=== PATIENT | male | born 1980 | race Caucasian/White ===

== ENCOUNTER 2023-10-01 14:27 | Outpatient (RCR) | payer BC, MEDICAID, SELFPAY | END 2023-10-25 23:59 | disposition home or self-care (01) | LOC: SPT 14:27 | PROVIDERS: PCP Family Medicine; Visit Provider Family Medicine | DX: G82.53 Quadriplegia, C5-C7 complete (principal) | CPT/HCPCS: 97161 ==

== ENCOUNTER 2023-11-02 00:56 | Emergency (ER) | payer BC, MEDICAID, SELFPAY ==
[2023-11-02 01:19] VITALS: BP 90/72; PULSE 104; RESP 19; TEMP 36.5; O2SAT 94; BMI 33.0
--- NOTE | 2023-11-02 01:36 | ED_ITS ---
HPI - Male Genitourinary General: Chief complaint: Urogenital-Male Stated complaint: POSSIBLE UTI Time Seen by Provider: 11/02/23 01:16 Source: patient Mode of arrival: ambulatory Limitations: no limitations History of Present Illness: 43-year-old male has a history of spinal injury from a fall out of a tree stand last year he is a quadriplegic he has a suprapubic cath he states that he gets UTIs often he states that today he had some slight weakness and they did do a urine strip at home that showed positive UTI states he said no vomiting denies any fevers denies any pain anywhere Associated symptoms: Deny nausea or vomiting Review of Systems Const: Denies: fever(s), chills, body aches or change in appetite ENMT: Denies: throat pain or dental pain Card: Denies: chest pain Resp: Denies: dyspnea GI: Denies: abdominal pain, nausea, vomiting or diarrhea Musc: Denies: neck pain or back pain Skin/Breast: Denies: rash Physical Exam Const: COMMON NORMALS: no acute distress, patient oriented x3 and healthy appearing HENMT: COMMON NORMALS: normocephalic and atraumatic HEAD & SCALP: normocephalic and atraumatic Eye: COMMON NORMALS: conjunctivae normal CONJUNCTIVA: Yes conjunctivae normal Neck/C-Spine: COMMON NORMALS: full ROM and supple Chest: COMMONS NORMALS: normal inspection of the chest Resp: COMMON NORMALS: normal respiratory effort Cardio: COMMON NORMALS: regular rate RATE: regular rate : OTHER: Suprapubic in place urine noted in [place] bag Extremity: COMMON NORMALS: normal to inspection and full ROM Neuro: COMMON NORMALS: patient oriented x3, moves all extremities and no focal motor deficits Psych: COMMON NORMALS: mental status grossly normal, Normal thought process present and cooperative THOUGHT PROCESS: Normal thought process present Skin: COMMON NORMALS: no rashes or lesions noted and no wounds GENERAL SKIN EXAM: no rashes or lesions noted Course Vital Signs: Vital signs: Vital Signs Temperature 97.7 F 11/02/23 01:19 Pulse Rate 104 H 11/02/23 01:19 Respiratory Rate 19 H 11/02/23 01:19 Blood Pressure 90/72 11/02/23 01:19 Pulse Oximetry 94 11/02/23 01:19 Oxygen Delivery Me thod Room Air 11/02/23 01:19 MDM - Male Medical Decision Making Patient presents here with concern of UTI urinalysis does show UTI he has no signs of sepsis here we will give him IM dose of Rocephin place him on Keflex he is follow-up with PCP return if worsening Medical Records I reviewed the patient's medical records. Lab Data I reviewed the patient's lab results. Laboratory Results Urine Color Yellow (Yellow) 11/02/23 01:35 Urine Appearance Cloudy (CLEAR) A 11/02/23 01:35 Urine pH 5 (5-7) 11/02/23 01:35 Ur Specific [place] 1.015 (1.005-1.030) 11/02/23 01:35 Urine Protein Neg (Negative) 11/02/23 01:35 Urine Glucose (UA) Norm (Normal) 11/02/23 01:35 Urine Ketones 1+ (Negative) H 11/02/23 01:35 Urine Blood Trace (Negative) H 11/02/23 01:35 Urine Nitrate Positive (Negative) H 11/02/23 01:35 Urine Bilirubin Neg (Negative) 11/02/23 01:35 Urine Urobilinogen Neg mg/dL (Negative) 11/02/23 01:35 Ur Leukocyte Esterase 2+ (Negative) H 11/02/23 01:35 Urine RBC 0-4 /hpf (0-2) H 11/02/23 01:35 Urine WBC 25-40 /hpf (0-5) H 11/02/23 01:35 Ur Squamous Epith Cells 0-4 /hpf (0-5) H 11/02/23 01:35 Amorphous Sediment Not Reportable 11/02/23 01:35 Urine Bacteria 3+ /hpf (NONE) H 11/02/23 01:35 Urine Mucus Trace /hpf 11/02/23 01:35 No radiology studies performed this visit Discharge Plan Discharge Patient Disposition: Home Clinical Impression: Urinary tract infection Condition: Stable Prescriptions: New cephalexin 500 mg capsule 500 mg PO TID 7 Days Qty: 21 0RF Discharge Orders: Discharge ED (Routine); Ordered 11/02/23 Ordered By: Maia Sherman Referrals: Charles Garcia MD [Primary Care Provider] - 1-3 days Discharge Diet: Advance as tolerated Discharge Activity: Resume usual activity Patient Instructions: Urinary Tract Infection in Men (ED) Coding Level of Care Code ED Mobile Application Developer for Mely Torrez
[2023-11-02 01:45] VITALS: BP 102/68; PULSE 98; RESP 18; O2SAT 94
[2023-11-02 02:00] VITALS: BP 120/70; PULSE 91; RESP 20; O2SAT 95
[2023-11-02 02:08] LABS: Add Urine Microscopic? YES; Bilirubin Urine Neg (Negative); Blood Urine Trace (Negative); Glucose Urine UA Norm (Normal); Ketones Urine 1+ (Negative); Leukocyte Esterase Urine 2+ (Negative); Nitrate Urine Positive (Negative); Protein Urine Neg (Negative); Specific Gravity, Urine 1.015 (1.005-1.030); Urine Appearance Cloudy (CLEAR); Urine Color Yellow (Yellow); Urobilinogen Urine Neg (Negative); pH Urine 5 (5-7)
[2023-11-02 02:09] LABS: Add Urine Culture? Yes; Bacteria Urine 3+ /hpf; Mucus Urine TRACE /hpf; RBC Urine 0-4 /hpf (0-2); Squamous Epithelial Cell Urine 0-4 /hpf (0-5); WBC Urine 25-40 /hpf (0-5)
[2023-11-02] MEDS: cefTRIAXone 1,000 MG in water for injection-sterile 2.1 ML 999 MG IM (02:25)
[2023-11-02 02:30] VITALS: BP 152/69; PULSE 86; RESP 17; O2SAT 95
[2023-11-02 02:47] VITALS: BP 138/82; PULSE 85; RESP 19; O2SAT 94
== END 2023-11-02 02:47 | disposition home or self-care (01) ==
PROVIDERS: Emergency Provider Emergency Medicine; PCP Family Medicine
DX: N39.0 Urinary tract infection, site not specified (principal); G82.50 Quadriplegia, unspecified; Z87.440 Personal history of urinary (tract) infections
CPT/HCPCS: 81001; 87077; 87086; 87186; 99284; J0696

== ENCOUNTER 2023-12-05 15:38 | Outpatient (RCR) | payer BC, MEDICAID, SELFPAY | END 2023-12-25 23:59 | disposition home or self-care (01) | LOC: SOT 15:38 | PROVIDERS: PCP Family Medicine; Visit Provider Family Medicine | DX: R20.2 Paresthesia of skin (principal); G82.50 Quadriplegia, unspecified | CPT/HCPCS: 97167 ==

== ENCOUNTER 2023-12-12 06:00 | Outpatient (CLI) | payer BC, MEDICAID, SELFPAY | END 2023-12-12 23:59 | disposition home or self-care (01) | LOC: SOT 12-13 11:50 | PROVIDERS: PCP Family Medicine; Visit Provider Family Medicine | DX: Z46.89 Encounter for fitting and adjustment of other specified devices (principal); M24.542 Contracture, left hand | CPT/HCPCS: 97760; L3923 ==

== ENCOUNTER 2024-07-14 06:23 | Emergency (ER) | payer MEDICAID, SELFPAY ==
[2024-07-14 06:53] VITALS: BP 209/134; PULSE 109; RESP 16; TEMP 36.8; O2SAT 100; BMI 34.2
[2024-07-14 06:59] VITALS: BP 131/82; O2SAT 99
--- NOTE | 2024-07-14 07:04 | W.ED.MALEGU ---
HPI - Male Genitourinary General: Chief complaint: Urogenital-Male Stated complaint: urinary Time Seen by Provider: 07/14/24 06:36 History of Present Illness: 44-year-old male presents to the emergency room with complaint of malfunctioning urinary catheter. Patient about 18 months ago had a cervical spine injury resulting in quadriplegia. He is restricted to a wheelchair at this time. He has a suprapubic catheter he was due to have it changed today he says is not draining as well he has not recently been sick or had a fever. Presented to the emergency room to have it evaluated because of inclement weather did not want to travel to [place] Related Data Home Medications ?Medication ?Instructions ?Recorded ?Confirmed acetaminophen 325 mg tablet (Pain 650 mg PO Q4H 07/14/24 07/14/24 Relief (acetaminophen)) baclofen 10 mg tablet 30 mg PO QPM 07/14/24 07/14/24 calcium 500 mg (as 1 tab PO BID 07/14/24 07/14/24 carbonate)-vitamin D3 5 mcg (200 unit) tablet (Oyster Shell Calcium-Vitamin D3) cetirizine 10 mg tablet 10 mg PO DAILY 07/14/24 07/14/24 docusate sodium 283 mg/5 mL enema 283 mg LA DAILY PRN Constipation 07/14/24 07/14/24 gabapentin 100 mg capsule 200 mg PO BID 07/14/24 07/14/24 ipratropium 0.5 mg-albuterol 3 mg 3 ml inhalation Q4H 07/14/24 07/14/24 (2.5 mg base)/3 mL nebulization soln melatonin 5 mg tablet 10 mg PO QPM 07/14/24 07/14/24 pantoprazole 40 mg tablet,delayed 40 mg PO DAILY 07/14/24 07/14/24 release tiotropium bromide 2.5 2 puff inhalation DAILY 07/14/24 07/14/24 mcg/actuation mist for inhalation (Spiriva Respimat) Allergies Allergy/AdvReac Type Severity Reaction Status Date / Time watermelon Allergy ALGY-Anaphy Verified 11/02/23 01:28 laxis Physical Exam Const: COMMON NORMALS: no acute distress GENERAL APPEARANCE: cooperative and comfortable ORIENTATION/CONSCIOUSNESS: Yes awake, Yes oriented to person, Yes oriented to place and Yes oriented to time HENMT: COMMON NORMALS: normocephalic, atraumatic and hearing grossly normal bilaterally HEAD & SCALP: normocephalic and atraumatic Neuro: SENSORIUM/ORIENTATION: Yes oriented to person, Yes oriented to place and Yes oriented to time Course Vital Signs: Vital signs: Vital Signs Temperature 98.3 F 07/14/24 06:53 Pulse Rate 127 H 07/14/24 08:36 Respiratory Rate 16 07/14/24 06:53 Blood Pressure 131/82 07/14/24 08:36 Pulse Oximetry 97 07/14/24 08:36 Oxygen Delivery Me thod Room Air 07/14/24 06:53 MDM - Male Medical Decision Making Catheter replaced immediately drained 800 mL. Patient is tolerating well no adverse effects. Follow-up with urology primary care as needed No radiology studies performed this visit Discharge Plan Discharge Patient Disposition: Home Clinical Impression: Complication, blocked suprapubic catheter Condition: Stable Prescriptions: No Action acetaminophen [Pain Relief (acetaminophen)] 325 mg tablet 650 mg PO Q4H ipratropium-albuterol 0.5 mg-3 mg(2.5 mg base)/3 mL solution for nebulization 3 ml INHALATION Q4H cetirizine 10 mg tablet 10 mg PO DAILY baclofen 10 mg tablet 30 mg PO QPM pantoprazole 40 mg tablet,delayed release (DR/EC) 40 mg PO DAILY gabapentin 100 mg capsule 200 mg PO BID calcium carbonate-vitamin D3 [Oyster Shell Calcium-Vit D3] 500 mg-5 mcg (200 unit) tablet 1 tab PO BID melatonin 5 mg tablet 10 mg PO QPM docusate sodium 283 mg/5 mL enema 283 mg LA DAILY PRN (Reason: Constipation) Spiriva Respimat 2.5 mcg/actuation mist 2 puff INHALATION DAILY Discharge Orders: Discharge ED (Routine); Ordered 07/14/24 Ordered By: Geovani Drake Referrals: Charles Garcia MD [Primary Care Provider] - Discharge Diet: Usual diet Discharge Activity: Resume usual activity Patient Instructions: Opioid Safety, Pain Management Activity Restrictions/Additional Instructions: Thank you for choosing [facility] for your healthcare needs today. It is very important that you follow up as instructed or that you return to the Emergency Department should you have concerns or if your condition changes or worsens in any way. You were seen in the emergency room with complication of your suprapubic catheter. Catheter was exchanged and it appears to be draining well follow-up with your primary care doctor or urologist as previously planned. Print Language: Greek Coding Level of Care Code ED Tier Lift Operator for Mely Torrez
--- NOTE | 2024-07-14 07:47 | PC.NURSE ---
PT had 800 ML urine output after replacing urinary catheter
[2024-07-14 08:36] VITALS: BP 131/82; PULSE 127; O2SAT 97
== END 2024-07-14 08:36 | disposition home or self-care (01) ==
PROVIDERS: Emergency Provider Family Medicine; PCP Family Medicine
DX: T83.098A Other mechanical complication of other urinary catheter, initial encounter (principal); X58.XXXA Exposure to other specified factors, initial encounter
CPT/HCPCS: 51702; 99283

== ENCOUNTER 2025-03-12 11:42 | Emergency (ER) | payer MEDICAID, SELFPAY ==
[2025-03-12 11:47] VITALS: BP 136/68; PULSE 111; RESP 16; TEMP 36.8; O2SAT 95
--- OUTSIDE RECORDS SUMMARY | 2025-03-12 12:30 | XMS_ITS | Clinical Summary ---
Author Organization [facility] Address [address] 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
--- OUTSIDE RECORDS SUMMARY | 2025-03-12 12:30 | XMS_ITS | Continuity of Care Document ---
Author Organization [facility] ([facility]) Address [address] [place] [address] Problems Condition ICD9 code ICD10 code SNOMED code Start Date End Date S tatus Quadriplegia, C5-C7 incomplete G82.54 08/03/2023 Active Other incomplete lesion at C4 level of cervical spinal cord, sequela S14.154S 08/03/2023 Acti ve Other incomplete lesion at C5 level of cervical spinal cord, sequela S14.155S 08/03/2023 Acti ve History of falling Z91.81 08/03/2023 Ac tive Occlusion and stenosis of left vertebral artery I65.02 08/03/2023 Act jacky Depression, unspecified F32.A 08/03/2023 Active Anxiety disorder, unspecified F41.9 08/03/2023 Active Paresthesia of skin R20.2 08/03/2023 A ctive Unspecified chronic bronchitis J42 08/20/2023 Active Pressure ulcer of right heel, unstageable L89.610 08/05/2023 Active Cramp and spasm R25.2 08/03/2023 Activ e Neurogenic bowel, not elsewhere classified K59.2 08/03/2023 Acti ve Neuromuscular dysfunction of bladder, unspecified N31.9 08/03/2023 A ctive Insomnia, unspecified G47.00 08/20/2023 Active Other seasonal allergic rhinitis J30.2 08/20/2023 Active Gastro-esophageal reflux disease without esophagitis K21.9 08/20/2023 Active Retention of urine, unspecified R33.9 08/05/2023 Active Encounter for attention to cystostomy Z43.5 08/05/2023 Active Pruritus, unspecified L29.9 08/03/2023 Active custodial (current) use of aspirin Z79.82 08/03/2023 Active Results No Results Allergies, adverse reactions, alerts Substance Reaction Date Status Type watermelon 08/02/2023 Non Drug Immunizations Vaccine Route Date Status COVID-19 Vaccine Unassigned Route of Administration Refused Medications Medication Instructions Route Dosage Frequency Start Date Stop Date Indications Status acetaminophen 325 mg tablet (acetaminophen) 2 tabs, oral, Every 4 Hours - PRN, 2 tabs by mouth to equal 650mg oral 1.0 4.0 h 08/21 Active Acidophilus (lactobacillus acidophilus) - capsule (Acidophilus (lactobacillus acidophilus)) 2 cap, oral, Once A Day, 2 cap by mouth daily oral 1.0 1.0 d 08/21 Active amitriptyline 25 mg tablet (amitriptyline) 1 tab, oral, Once An Evening, 1 tab by mouth every night at bedtime oral 1.0 08/19 Active ascorbic acid (vitamin C) 500 mg capsule (ascorbic acid (vitamin C)) 1 tab, oral, Three Times A Day, 1 tab three times a day oral 1.0 8.0 h 08/21 Active Aspirin Childrens (aspirin) 81 mg tablet,chewable (Aspirin Childrens (aspirin)) 1 tab, oral, Once A Day, 1 tab daily oral 1.0 1.0 d 08/21 Active AZO D-Mannose (d-mannose) 500 mg capsule (AZO D-Mannose (d-mannose)) 3 caps, oral, Twice A Day, 3 caps twice a day oral 1.0 12.0 h 08/21 Active baclofen 10 mg tablet (baclofen) 3 tabs, oral, Once A Day, 3 tabs to equal 30mg by mouth every evening oral 1.0 1.0 d 08/21 Active baclofen 5 mg tablet (baclofen) 1 tab, oral, Twice A Day, 1 tab BID oral 1.0 12.0 h 08/21 Active Biofreeze (menthol) (menthol) 5 % gel (Biofreeze (menthol) (menthol)) 1 application, topical, As Needed, special instruction: put on R shoulder for pain q 1 hr prn topical 1.0 1.0 d 08/08 Active Calcium 600 with Vitamin D3 (calcium carbonate-vitam in d3) 600 mg-10 mcg (400 unit) tablet,chewable (Calcium 600 with Vitamin D3 (calcium carbonate-vitam in d3)) 1 tab, oral, Twice A Day, 1 tab by mouth BID oral 1.0 12.0 h 08/21 Active celecoxib 200 mg capsule (celecoxib) 1 tab, oral, Twice A Day, 1 tab BID oral 1.0 12.0 h 08/19 Active celecoxib 200 mg capsule (celecoxib) 1 tab, oral, Twice A Day - PRN, 1 tab BID oral 1.0 12.0 h 08/21 Active cetirizine 10 mg tablet (cetirizine) 1 tab, oral, Once A Day, 1 tab daily oral 1.0 1.0 d 08/21 Active cholecalciferol (vitamin D3) 125 mcg (5,000 unit) tablet (cholecalcifero l (vitamin D3)) 1 cap, oral, Once A Day, 1 cap daily oral 1.0 1.0 d 08/21 Active clonazepam 0.5 mg tablet (clonazepam) 1 tab, oral, Once A Day, 1 tab every evening before bed oral 1.0 1.0 d 08/21 Active Cooling Pain Relief (menthol) 4 % gel (Cooling Pain Relief (menthol)) 1 application, topical, Every 1 Hour - PRN, to R shoulder for pain topical 1.0 1.0 h 08/21 Active Dulcolax (bisacodyl) (bisacodyl) 10 mg suppository (Dulcolax (bisacodyl) (bisacodyl)) 1 suppository, rectal, Once A Day - PRN, Give rectally if can't take p/o, if no results from MOM rectal 1.0 1.0 d 08/21 Active Dulcolax (bisacodyl) (bisacodyl) 5 mg tablet,delayed release (DR/EC) (Dulcolax (bisacodyl) (bisacodyl)) 2 tabs/10mg, oral, Once A Day - PRN, Give if no results from MOM oral 1.0 1.0 d 08/21 Active Enemeez (docusate sodium) 283 mg/5 mL enema (Enemeez (docusate sodium)) 1 enema, rectal, At Bedtime rectal 1.0 08/21 Active Fiber Laxative (ca polycarbo) (calcium polycarbophil) 625 mg tablet (Fiber Laxative (ca polycarbo) (calcium polycarbophil)) 2 tab= 1250mg, oral, Three Times A Day, administer with 8 oz of fluid oral 1.0 8.0 h 08/21 Active Fleet Enema (sodium phosphates) 19-7 gram/118 mL enema (Fleet Enema (sodium phosphates)) 1 application, rectal, Once A Day - PRN, Give fleets if no results from MOM and Dulcolax rectal 1.0 1.0 d 08/21 Active gabapentin 100 mg capsule (gabapentin) 2 caps, oral, Twice A Day, 2 caps by mouth BID oral 1.0 12.0 h 08/21 Active guaifenesin 1,200 mg tablet extended release 12hr (guaifenesin) 1 tab, oral, Twice A Day, 1 tab by mouth twice a day oral 1.0 12.0 h 08/14 Active Hydraguard-D (dimethicone) 12.5 % cream (Hydraguard-D (dimethicone)) 1 application, topical, Twice A Day, apply to bony prominences and areas exposed to high friction and sheering topical 1.0 12.0 h 08/04 Active ipratropium-alb uterol 0.5 mg-3 mg(2.5 mg base)/3 mL solution for nebulization (ipratropium-al buterol) 1 vial, inhalation, Every 4 Hours - PRN, Give one 3ml vial PRN for SOB inhalation 1.0 4.0 h 08/21 Active melatonin 10 mg tablet (melatonin) 1 tab, oral, Once A Day, 1 tab by mouth at bedtime oral 1.0 1.0 d 08/14 Active melatonin 5 mg tablet (melatonin) 2 tabs = 10mg, oral, At Bedtime oral 1.0 08/21 Active Milk of Magnesia (magnesium hydroxide) 400 mg/5 mL suspension (Milk of Magnesia (magnesium hydroxide)) 30 ml, oral, Every 72 Hours - PRN, if no BM in 3 daysDO NOT GIVE TO RENAL PATIENTS--GO TO DULCOLAX ORDERS oral 1.0 72.0 h 08/21 Active Mucus Relief ER (guaifenesin) 600 mg tablet extended release 12hr (Mucus Relief ER (guaifenesin)) 2 tab = 1200mg, oral, Twice A Day oral 1.0 12.0 h 08/21 Quadriplegia , C5-C7 incomplete Active pantoprazole 40 mg tablet,delayed release (DR/EC) (pantoprazole) 1 tab, oral, Once A Day, 1 tab by mouth daily oral 1.0 1.0 d 08/21 Active prazosin 2 mg capsule (prazosin) 1 cap, oral, Once A Day, 1 cap by mouth at bedtime oral 1.0 1.0 d 08/21 Active quetiapine 50 mg tablet (quetiapine) 1 tab, oral, Once A Day, 1 tab by mouth daily at 1900 oral 1.0 1.0 d 08/21 Active quetiapine 25 mg tablet (quetiapine) 1 tab, oral, As Needed, 1 tab PRN for insomnia oral 1.0 1.0 d 08/04 Active quetiapine 25 mg tablet (quetiapine) 1 tab, oral, Once An Evening - PRN, 1 tab PRN for insomnia oral 1.0 08/21 Active sertraline 25 mg tablet (sertraline) 1 tab, oral, Once A Day, 1 tab by mouth every evening before bed oral 1.0 1.0 d 08/19 Active simethicone (bulk) - liquid (simethicone (bulk)) 1.2 ml= 80 mg, miscellaneous , Three Times A Day 1.0 8.0 h 08/21 Active Spiriva Respimat (tiotropium bromide) 2.5 mcg/actuation mist (Spiriva Respimat (tiotropium bromide)) 2 puffs, inhalation, Once A Day, 2 puff daily inhalation 1.0 1.0 d 08/21 Active trazodone 50 mg tablet (trazodone) 1 tab, oral, Once A Day, 1 tab by mouth before bed oral 1.0 1.0 d 08/19 Active Tubersol (tuberculin ppd) 5 tub. unit /0.1 mL solution (Tubersol (tuberculin ppd)) 0.1ml, intradermal, Once - One Time, Administer the morning after admission intraderma l 1.0 08/20 Active Tubersol (tuberculin ppd) 5 tub. unit /0.1 mL solution (Tubersol (tuberculin ppd)) 0.1ml, intradermal, Once - One Time, Administer on the day shift intraderma l 1.0 08/20 Active Tylenol (acetaminophen) 325 mg tablet (Tylenol (acetaminophen) ) 2 tabs/650mg, oral, Every 6 Hours - PRN, as needed for PRN pain/increase d tempMay give rectally if necessary oral 1.0 6.0 h 08/06 Active vitamin A and D - ointment (vitamin A and D) 1 application, topical, Once A Day, 1 application daily to feet topical 1.0 1.0 d 08/21 Active Vital Signs Date Vital Result Comment 08/19/2023 10:01 PM Temperature (8310-5) 98 [degF] Oxygen Saturation (99121-8) 96 % Respiratory Rate (9279-1) 18 /min Heart Rate (8867-4) 68 /min Blood Pressure Systolic (8480-6) 131 mm[Hg] Blood Pressure Diastolic (8462-4) 77 mm[Hg] 08/17/2023 08:15 PM Temperature (8310-5) 98 [degF] Oxygen Saturation (64393-5) 97 % Respiratory Rate (9279-1) 16 /min Heart Rate (8867-4) 68 /min Blood Pressure Systolic (8480-6) 120 mm[Hg] Blood Pressure Diastolic (8462-4) 72 mm[Hg] 08/18/2023 02:02 PM Temperature (8310-5) 98.2 [degF] Oxygen Saturation (15691-2) 96 % Respiratory Rate (9279-1) 17 /min Heart Rate (8867-4) 66 /min Blood Pressure Systolic (8480-6) 124 mm[Hg] Blood Pressure Diastolic (8462-4) 76 mm[Hg] 08/20/2023 11:34 PM Temperature (8310-5) 98.8 [degF] Oxygen Saturation (92816-9) 96 % Respiratory Rate (9279-1) 18 /min Heart Rate (8867-4) 67 /min Blood Pressure Systolic (8480-6) 134 mm[Hg] Blood Pressure Diastolic (8462-4) 84 mm[Hg] 08/08/2023 11:29 AM Body Height (8302-2) 73 [in_us] 08/18/2023 08:25 PM Temperature (8310-5) 98 [degF] Oxygen Saturation (11581-2) 96 % Respiratory Rate (9279-1) 16 /min Heart Rate (8867-4) 71 /min Blood Pressure Systolic (8480-6) 136 mm[Hg] Blood Pressure Diastolic (8462-4) 72 mm[Hg] 08/19/2023 11:22 AM Temperature (8310-5) 98.2 [degF] Oxygen Saturation (24555-8) 95 % Respiratory Rate (9279-1) 17 /min Heart Rate (8867-4) 73 /min Blood Pressure Systolic (8480-6) 142 mm[Hg] Blood Pressure Diastolic (8462-4) 93 mm[Hg] 08/17/2023 12:15 PM Temperature (8310-5) 97.8 [degF] Oxygen Saturation (40694-6) 96 % Respiratory Rate (9279-1) 16 /min Heart Rate (8867-4) 76 /min Blood Pressure Systolic (8480-6) 119 mm[Hg] Blood Pressure Diastolic (8462-4) 62 mm[Hg] 08/14/2023 10:23 PM Body Weight (47037-6) 242 [lb_av] Body Mass Index (12579-4) 31.92 kg/m2 08/17/2023 01:08 AM Temperature (8310-5) 98 [degF] Oxygen Saturation (11808-2) 95 % Respiratory Rate (9279-1) 18 /min Heart Rate (8867-4) 70 /min Blood Pressure Systolic (8480-6) 132 mm[Hg] Blood Pressure Diastolic (8462-4) 78 mm[Hg] 08/04/2023 06:34 PM Body Weight (20438-2) 240 [lb_av] Body Mass Index (41207-3) 31.66 kg/m2 08/07/2023 10:36 AM Body Weight (70437-0) 246.8 [lb_av ] Body Mass Index (70207-0) 32.56 kg/m2 08/21/2023 10:35 AM Temperature (8310-5) 97.8 [degF] Oxygen Saturation (58177-2) 96 % Respiratory Rate (9279-1) 18 /min Heart Rate (8867-4) 86 /min Blood Pressure Systolic (8480-6) 137 mm[Hg] Blood Pressure Diastolic (8462-4) 80 mm[Hg] 08/20/2023 09:33 AM Temperature (8310-5) 97.5 [degF] Oxygen Saturation (36158-1) 95 % Respiratory Rate (9279-1) 17 /min Heart Rate (8867-4) 78 /min Blood Pressure Systolic (8480-6) 137 mm[Hg] Blood Pressure Diastolic (8462-4) 89 mm[Hg] 08/14/2023 10:22 PM Body Weight (88512-9) 242 [lb_av] Body Mass Index (12068-4) 31.92 kg/m2 Social History No smoking Hx information available Encounters Type CPT Code Date Location Provider Indication s encounter report 08/03/2023 08:0 8 PM - 08/21/2023 06:43 PM Zain Ceballos DO 01 Advance Directives Directive Description Verification Date Supporting Document(s) Other Directive
--- OUTSIDE RECORDS SUMMARY | 2025-03-12 12:31 | XMS_ITS | Encounter Summary ---
Author Organization [facility] Address [address] [place] [address] Care Team Providers Care Junior Accountant Bookkeeper Name Role Phone Unavailable Primary Care Provider Unavailabl e Encounter Details Date Type Department Care Team (Latest Contact Info) Description 12/23/1997 Outpatient Historical [facility] Steven Hernandez MD NO ADDRESS ON FILE Closed fracture of dorsal (thoracic) vertebra without mention of spinal cord injury (Primary Dx); Fracture treatmnt conval Social History Tobacco Use Types Packs/Day Years Used Date Smoking Tobacco: Never Assessed Sex and Gender Information Value Date Recorded Sex Assigned at Not on file 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
--- OUTSIDE RECORDS SUMMARY | 2025-03-12 12:31 | XMS_ITS | Encounter Summary ---
Author Organization [facility] Address [address] [place] [address] Care Team Providers Care Aerodynamics Engineer Name Role Phone Unavailable Primary Care Provider Unavailabl e Encounter Details Date Type Department Care Team (Latest Contact Info) Description 06/28/1998 Outpatient Historical [facility] Steven Hernandez MD NO ADDRESS ON FILE Closed fracture of dorsal (thoracic) vertebra without mention of spinal cord injury (Primary Dx); Thoracic disc displacmnt; Surgical convalescence Social History Tobacco Use Types Packs/Day Years Used Date Smoking Tobacco: Never Assessed Sex and Gender Information Value Date Recorded Sex Assigned at Not on file 

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
--- OUTSIDE RECORDS SUMMARY | 2025-03-12 12:31 | XMS_ITS | Encounter Summary ---
[facility] Organization [facility] Address [address] [place] [address] Care Team Providers Care Trade Facilitator Name Role Phone Unavailable Primary Care Provider Unavailabl e Encounter Details Date Type Department Care Team (Latest Contact Info) Description 09/30/1997 Outpatient Historical [facility] Steven Hernandez MD NO ADDRESS ON FILE Closed fracture of dorsal (thoracic) vertebra without mention of spinal cord injury (Primary Dx); Thoracic disc displacmnt; Follow-up examination following surgery Social History Tobacco Use Types Packs/Day Years Used Date Smoking Tobacco: Never Assessed Sex and Gender Information Value Date Recorded Sex Assigned at Not on file 

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
[2025-03-12 13:50] LABS: Hematocrit 43.9 % (37-53); Hemoglobin 14.70 g/dL (11.27-16.99); Mean Corpuscular HGB Conc 33.5 g/dL (30-55); Mean Corpuscular Hemoglobin 30.6 pg (27-33); Mean Corpuscular Volume 91.5 fl (82-101); Nucleated Red Blood Cells % 0 %; Platelet Count 300 10^3/cmm (157-399); Red Blood Count 4.80 10^6/uL (3.85-5.65); White Blood Count 12.40 10^3/uL (3.29-11.43)
[2025-03-12] MEDS: cefTRIAXone 1,000 mg SDV 1000 MG IVP (13:51)
[2025-03-12 13:52] VITALS: BP 121/63; PULSE 103; O2SAT 98
[2025-03-12 14:08] LABS: Alanine Aminotransferase 32 U/L (0-41); Albumin Level 3.8 g/dL (3.5-5.2); Alkaline Phosphatase 117 U/L (40-130); Anion Gap 17.1 (5-19); Aspartate Amino Transferase 17 U/L (0-40); Blood Urea Nitrogen 8 mg/dL (6-20); Calcium 8.8 mg/dL (8.5-10.5); Carbon Dioxide 22 mmol/L (22-29); Chloride 101 mmol/L (98-107); Creatinine Clr Calc Pharmacy 260.5702; Globulin 2.9 g/dL (1.3-4.6); Glucose 120 mg/dL (65-115); Osmolality Calculated 282 mOsm/kg (285-295); Potassium 4.1 mmol/L (3.5-5.1); Sodium 136 mmol/L (136-145); Total Protein 6.7 g/dL (6.6-8.7)
[2025-03-12 14:23] VITALS: BP 136/104; PULSE 100; O2SAT 96
== END 2025-03-12 14:50 | disposition home or self-care (01) ==
PROVIDERS: Emergency Provider Emergency Medicine; PCP Family Medicine
DX: T83.511A Infection and inflammatory reaction due to indwelling urethral catheter, initial encounter (principal); G82.50 Quadriplegia, unspecified; X58.XXXA Exposure to other specified factors, initial encounter
CPT/HCPCS: 36415; 80053; 81001; 85025; 87040; 87077; 87086; 87186; 96374; 99284; J0696; J7030